=== PATIENT | female | born 1955 | race Caucasian/White ===

== ENCOUNTER 2018-10-05 11:14 | Outpatient (CLI) | payer BC ==
--- NOTE | 2018-10-05 12:12 | MMO ---
Bilateral MAMMO Bilat Screen [facility]. CLINICAL HISTORY: Patient is 62 years old and is seen for screening. The patient has the following family history of breast cancer: maternal grandmother, at age 90, malignant (generic). The patient has no personal history of cancer. VIEWS: The views performed were: bilateral craniocaudal and bilateral mediolateral oblique. FILMS COMPARED: The present examination has been compared to prior imaging studies performed at 01/22/2012, 09/30/2013 and 04/02/2016. This study has been interpreted with the assistance of computer-aided detection. MAMMOGRAM FINDINGS: There are scattered fibroglandular densities. There are stable benign appearing calcifications seen in both breasts. There are no suspicious masses, suspicious calcifications, or new areas of architectural distortion. IMPRESSION: A ROUTINE FOLLOW-UP MAMMOGRAM IN 1 YEAR IS RECOMMENDED. ACR BI-RADS Category 2 - Benign finding MAMMOGRAPHY NOTE: 1. A negative mammogram report should not delay a biopsy if a dominant of clinically suspicious mass is present. 2. Approximately 10% to 15% of breast cancers are not detected by mammography. 3. Adenosis and dense breasts may obscure an underlying neoplasm.
== END 2018-10-05 11:15 | disposition home or self-care (01) ==
LOC: SCSMAMMO 11:14
PROVIDERS: ATTEND Family Medicine
DX: Z12.31 Encounter for screening mammogram for malignant neoplasm of breast (principal); Z80.3 Family history of malignant neoplasm of breast
CPT/HCPCS: 77067

== ENCOUNTER 2019-11-22 11:18 | Outpatient (CLI) | payer BC ==
--- NOTE | 2019-11-22 11:39 | RAD ---
EXAM: Cervical spine: 3 lateral views were obtained with flexion and extension. INDICATIONS: Cervical radiculopathy. COMPARISON: None. FINDINGS: Cervical vertebra maintain normal height and alignment. Disc spaces are preserved. Mild deg enerative change. Mild facet hypertrophy. Mild anterolisthesis at C3-4 noted with flexion. IMPRESSION: Mild degenerative change. Anterolisthesis at C3-4 with flexion.
== END 2019-11-22 11:19 | disposition home or self-care (01) ==
LOC: SCSRAD 11:18
PROVIDERS: ATTEND Neurological Surgery
DX: M47.22 Other spondylosis with radiculopathy, cervical region (principal); M43.12 Spondylolisthesis, cervical region
CPT/HCPCS: 72040

== ENCOUNTER 2021-03-13 16:37 | Outpatient (CLI) | payer MEDICARE, BC ==
[2021-03-13 18:10] LABS: #Lymphocytes 0.6 thou/uL (1.20-3.40); #Monocytes 0.3 thou/uL (0.11-0.59); #Neutrophils 4.7 thou/uL (1.40-6.50); %Eosinophils 0.2 % (0.0-10.0); %Lymphocytes 10.9 % (21.0-51.0); %Monocytes 4.8 % (0.0-10.0); %Neutrophils 84.2 % (42.0-75.0); Hemoglobin 12.8 g/dL (12.0-16.0); Mean Corpuscular HGB CONC 33.3 g/dL (32.0-36.0); Mean Corpuscular Hemoglobin 30.5 pg (27.0-31.0); Mean Corpuscular Volume 91.5 fL (78.0-98.0); Mean Platelet Volume 7.4 fL (7.4-10.4); Platelet Count 323 thou/uL (130-400); RBC Distribution Width 11.7 % (11.5-14.5); White Blood Cell (WBC) Count 5.6 thou/uL (4.8-10.8)
== END 2021-03-13 16:38 | disposition home or self-care (01) ==
LOC: SCSRAD 16:37
PROVIDERS: ATTEND Student in an Organized Health Care Education/Training Program
DX: R06.02 Shortness of breath (principal); K44.9 Diaphragmatic hernia without obstruction or gangrene
CPT/HCPCS: 36415; 71046; 85025; 85379

== ENCOUNTER 2021-12-17 10:10 | Outpatient (CLI) | payer MEDICARE, BC ==
[2021-12-17 14:48] LABS: #Eosinphils 0.1 thou/uL (0.0-0.7); #Lymphocytes 1.1 thou/uL (1.20-3.40); #Monocytes 0.6 thou/uL (0.11-0.59); #Neutrophils 2.2 thou/uL (1.40-6.50); %Basophils 0.9 % (0.0-1.0); %Eosinophils 3.3 % (0.0-10.0); %Lymphocytes 27.5 % (21.0-51.0); %Monocytes 13.6 % (0.0-10.0); %Neutrophils 54.7 % (42.0-75.0); Hemoglobin 10.9 g/dL (12.0-16.0); Mean Corpuscular HGB CONC 31.4 g/dL (32.0-36.0); Mean Corpuscular Hemoglobin 28.5 pg (27.0-31.0); Mean Corpuscular Volume 90.5 fL (78.0-98.0); Mean Platelet Volume 7.9 fL (7.4-10.4); Platelet Count 348 thou/uL (130-400); RBC Distribution Width 15.9 % (11.5-14.5); Red Blood Cell (RBC) Count 3.84 mill/uL (4.20-5.40)
[2021-12-17 15:54] LABS: CRP (Inflammatory) Less than 0.50 mg/dL (= or < 0.5)
== END 2021-12-17 10:11 | disposition home or self-care (01) ==
LOC: SCSRAD 10:10
PROVIDERS: ATTEND Family Medicine
DX: M25.572 Pain in left ankle and joints of left foot (principal)
CPT/HCPCS: 36415; 84550; 85025; 85652; 86140

== ENCOUNTER 2021-12-19 07:24 | Outpatient (CLI) | payer MEDICARE, BC | END 2021-12-19 07:25 | disposition home or self-care (01) | LOC: ULT 07:24 | PROVIDERS: ATTEND Family Medicine | DX: M79.605 Pain in left leg (principal) ==

== ENCOUNTER 2021-12-28 14:47 | Outpatient (CLI) | payer MEDICARE, BC | END 2021-12-28 14:48 | disposition home or self-care (01) | LOC: SCSMRI 14:47 | PROVIDERS: ATTEND Family Medicine | DX: M25.572 Pain in left ankle and joints of left foot (principal); M84.38XA Stress fracture, other site, initial encounter for fracture ==

== ENCOUNTER 2025-01-31 15:34 | Outpatient (CLI) | payer MEDICARE | END 2025-01-31 15:35 | disposition home or self-care (01) | LOC: SCSRAD 15:34 | PROVIDERS: ATTEND Family Medicine | DX: R06.02 Shortness of breath (principal) | CPT/HCPCS: 71046 ==